=== PATIENT | female | born 1980 | race Caucasian/White ===

== ENCOUNTER 2023-06-29 19:31 | Outpatient (REF) | payer BC, SELFPAY | END 2023-06-29 19:32 | disposition home or self-care (01) | LOC: LAB 19:31 | PROVIDERS: Visit Provider Physician Assistant | DX: Z01.419 Encounter for gynecological examination (general) (routine) without abnormal findings (principal) | CPT/HCPCS: 87624; G0145 ==

== ENCOUNTER 2023-07-14 07:49 | Outpatient (OUT) | payer BC, SELFPAY ==
--- OUTSIDE RECORDS SUMMARY | 2023-07-14 07:51 | XMS_ITS ---
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 Role Phone BENNETT, DR SHAW Attending Unavailable REQUEST, DR ROA LISTED Primary Care Unavaila ble BENNETT, DR SHAW Consulting Unavailable BENNETT, DR SHAW Admitting Unavailable BENNETT, DR SHAW Attending Unavailable BENNETT, DR SHAW Consulting Unavailable PEREZ, DR MARCELLA Seo Primary Care Unavailable BENNETT, DR SHAW Admitting Unavailable AGUBOSIM, TRIPP Consulting Unavailable DORKOSKIE, LISA Consulting Unavailable PEREZ, DR MARCELLA Seo Admitting Unavailable REQUEST, DR ROA LISTED Primary Care Unavaila ble PEREZ, DR MARCELLA Seo Attending Unavailable PEREZ, DR MARCELLA Seo Consulting Unavailable BENNETT, DR SHAW Attending Unavailable PEREZ, DR MARCELLA Seo Primary Care Unavailable BENNETT, DR SHAW Admitting Unavailable Marcella Perez Unavailable MARCELLA PEREZ Primary Care Unavailable RAUL MADRID Attending Unavailab ANDREA Chong Attending Unavailable Allergies Allergy Classification Reported Allergen(s) Allergy Type Date of Onset Reaction(s) Facility (1 source) Penicillins Drug allergy (disorder) 12-07-19 13 [facility] (1 source) Sulfonamides (Antibiotic) Drug allergy (disorder) [facility] (8 sources) penicillAMINE Drug Allergy hives [employer] Other (2 sources) Azithromycin Drug Allergy 04-05-19 14 Unknown [employer] Other (2 sources) Penicillin Drug Allergy 04-05-19 14 Unknown [employer] Other (2 sources) Substance with penicillin structure and antibacterial mechanism of action (substance) Drug allergy Unknown [employer] Other (2 sources) Substance with sulfonamide structure and antibacterial mechanism of action (substance) Drug allergy Unknown [employer] Other (2 sources) patient allergy list reviewed by nurse or physicia Propensity to adverse reactions 10-21-19 Comment:Done [employer] Other (2 sources) Allergies Reconciled Propensity to adverse reactions 02-06-19 Unknown [employer] Other (1 source) Amoxicillin; Translations: [AMOXICILLIN] Drug Allergy 01-11-20 [facility] Encounters Encounter Date Encounter Type Care Provider Facility Start: 06-29-2023 End: 06-29-2023 ambulatory ANDREA PRADO Not Available Start: 03-03-2023 End: 03-03-2023 Emergency department patient visit MARCELLA PEREZ [facility] Start: 03-01-2023 End: 03-01-2023 ambulatory Marcella Perez Other [employer] Other Start: 03-01-2023 Telephone encounter Marcella Perez [facility] Start: 10-04-2022 End: 10-04-2022 ambulatory Marcella Perez Other [employer] Other Start: 10-04-2022 Telephone encounter Marcella Perez [facility] Start: 08-22-2022 End: 08-22-2022 ambulatory Marcella Perez Other [employer] Other Start: 08-22-2022 Telephone encounter Marcella Perez [facility] Start: 07-13-2022 End: 07-13-2022 ambulatory Marcella Perez Other [employer] Other Start: 07-13-2022 Telephone encounter Marcella Perez [facility] Start: 04-14-2022 (Televisit) Televisit Marcella [facility] Start: 04-14-2022 End: 04-14-2022 ambulatory Marcella Perez Other [employer] Other Start: 02-24-2022 End: 02-24-2022 ambulatory Marcella Perez Other [employer] Other Start: 02-24-2022 Telephone encounter Marcella Perez [facility] Start: 02-18-2022 End: 02-18-2022 ambulatory Marcella Perez Other [employer] Other Start: 02-18-2022 Office outpatient vi sit 10 minutes Marcella Perez [facility] Start: 01-14-2022 End: 01-15-[address] MARCELLA PEREZ Facility:[facility] Start: 06-07-2021 Adult health examination Erica Perez Other [employer] Other Start: 06-07-2021 Gynecological examin ation normal Marcella Perez Other [employer] Other Start: 06-07-2021 Pre-procedure evalua tion check Marcella Perez Other [employer] Other Start: 04-23-2021 End: 04-23-[address] COLIN STOLL Facility:[facility] Start: 04-20-[address] COLIN STOLL Facility :[facility] Start: 04-13-2021 Encounter for other preprocedural examination DR COLIN STOLL [facility] Start: 04-09-2021 End: 04-10-[address] COLIN STOLL Facility:[facility] Start: 04-09-2021 End: 04-10-2021 Encounter for other preprocedural examination DR COLIN STOLL Facility:[facility] Immunizations Immunization Date Immunization Notes Care Provider Fa [facility] 11-28-2019 diphtheria, tetanus toxoids and acellular pertussis vaccine, unspecified formulation Marcella Perez Other [employer] Other 11-28-2019 influenza virus vaccine, split virus (incl. purified surface antigen) Marcella Perez Other [employer] Other Medications Current Medications Medication Drug Class(es) Dates Sig (Normalized) Sig (Original) [id number] 200 actuat albuterol 0.09 mg/actuat metered dose inhaler (8 sources) beta2-Adrenergic Agonist take 2 puff(s) by mouth every four hours as needed Ventolin HFA 108 (90 Base) MCG/ACT INHALE 2 PUFFS BY MOUTH EVERY 4 HOURS NEEDED for 17 days Active ALPRAZolam 0.25 mg oral tablet (3 sources) Benzodiazepine Start: 08-22-2022 take 1 tablet by mouth three times daily as needed ALPRAZolam 0.25 MG 1 tablet Orally three times daily as needed for 7 days Aug, Active azithromycin 250 mg oral tablet (6 sources) Macrolide Antimicrobial Start: 04-14-2022 Azithromycin 250 MG as directed Orally 2 tabs po today, then 1 tab daily x 4 more days for 5 Apr, Active citalopram 40 mg oral tablet (8 sources) Serotonin Reuptake Inhibitor take 0.5 tablet by mouth every twenty-four hours Citalopram Hydrobromide 40 MG 0.5 tablet Orally Once a day for 90 days Active phentermine hydrochloride 37.5 mg oral capsule (8 sources) Sympathomimetic Amine Anorectic Start: 02-18-2022 take 1 capsule by mouth every twenty-four hours Adipex-P 37.5 MG 1 capsule Orally Once a day for 30 days Feb, Active Completed/Discontinued Medications Medication Drug Class(es) Dates Sig (Normalized) Sig (Original) dextromethorphan hydrobromide 15 mg / guaiFENesin 400 mg / pseudoephedrine hydrochloride 60 mg oral tablet (8 sources) alpha-Adrenergic Agonist, Uncompetitive S-bnwvme-[place]-aspart[place] e Receptor Antagonist, Sigma-1 Agonist Start: 01-23-2019 Capmist DM 60-15-400 MG 1/2 to 1 tablet Orally every 6-8 hours as needed for 8 days Jan, Not-Taking/PRN methylPREDNISolone 4 mg oral tablet (8 sources) Corticosteroid Start: 01-23-2019 Medrol 4 MG as directed Orally for 6 days Jan, Not-Taking/PRN Payers Date Payer Category Payer Unknown [id number] 1980 Unknown [id number] 2.16.84 [id number] 1980 Unknown [id number] 2.16.84 [id number] 1980 Unknown [id number] 2.16.84 [id number] 1980 Unknown [id number] 2.16.84 [id number] 1980 Unknown [id number] 2.16.8 [id number] 1980 Unknown [id number] 2.16.84 [id number] 1957 Unknown [id number] 1957 Unknown [id number] 1957 Unknown [id number] Problems Active Problems Problem Classification Problem Date Documented Date Episodic/Chronic Acute bronchitis (4 sources) Acute bronchitis; Translations: [Acute bronchitis, unspecified] Onset: 10-29-2013 Episodic Anxiety disorders (3 sources) Anxiety disorder, unspecified; Translations: [Anxiety disorder] Onset: 05-25-2021 Chronic Asthma (5 sources) Unspecified asthma, uncomplicated; Translations: [Uncomplicated asthma] Onset: 05-25-2021 Resolved: 07-04-2018 Chronic Cancer of breast (13 sources) Personal history of malignant neoplasm of breast; Translations: [Personal history of primary malignant neoplasm of breast] Onset: 04-05-2013 Episodic Chronic obstructive pulmonary disease and bronchiectasis (4 sources) Acute exacerbation of chronic asthmatic bronchitis; Translations: [Chronic obstructive asthma, with (acute) exacerbation] Onset: 10-20-2017 Chronic Chronic obstructive pulmonary disease and bronchiectasis (2 sources) Bronchitis, not specified as acute or chronic Episodic Contraceptive and procreative management (4 sources) Encounter for sterilization; Translations: [Encounter for removal of intrauterine contraceptive device] Onset: 05-25-2021 Episodic Endometriosis (2 sources) Endometriosis of uterus; Translations: [Endometriosis of uterus] Onset: 04-05-2013 Chronic Genitourinary congenital anomalies (1 source) Other doubling of uterus, other specified; Translations: [OTHER AND UNS DOUBLING OF UTERUS] Onset: 05-25-2021 Chronic Headache; including migraine (1 source) Headache Onset: 03-03-2023 Episodic Influenza (1 source) Influenza due to other identified influenza virus with other respiratory manifestations; Translations: [Influenza due to other identified influenza virus with other respiratory manifestations] Onset: 03-03-2023 Episodic Liveborn (2 sources) Single liveborn born in hospital by section ; Translations: [Single liveborn , delivered by ] Episodic Malaise and fatigue (6 sources) Other fatigue; Translations: [Fatigue] Onset: 01-14-2022 Episodic Menstrual disorders (9 sources) Excessive and frequent menstruation with regular cycle; Translations: [Irregular periods] Onset: 03-09-2021 Chronic Mood disorders (1 source) Major depressive disorder, single episode, unspecified; Translations: [PINO DEPRESS D/O SINGLE EPIS UNS] Onset: 05-25-2021 Chronic Nausea and vomiting (1 source) Nausea Onset: 03-03-2023 Episodic Nonmalignant breast conditions (2 sources) Pain of breast; Translations: [Mastodynia] Episodic Other aftercare (2 sources) History and physical examination, follow-up; Translations: [Encounter for follow-up examination after completed treatment for conditions other than malignant neoplasm] Episodic Other aftercare (2 sources) Long-term current use of inhaled steroid; Translations: [shelter (current) use of inhaled steroids] Episodic Other circulatory disease (2 sources) Elevated blood-pressure reading without diagnosis of hypertension; Translations: [Elevated blood-pressure reading, without diagnosis of hypertension] Episodic Other nutritional; endocrine; and metabolic disorders (8 sources) Body mass index 30+ - obesity; Translations: [Body mass index (BMI) 36.0-36.9, adult] Chronic Other nutritional; endocrine; and metabolic disorders (1 source) Body mass index (BMI) 36.0-36.9, adult Chronic Other nutritional; endocrine; and metabolic disorders (2 sources) Obese class II; Translations: [Body mass index (BMI) 37.0-37.9, adult] Chronic Other and delivery including normal (6 sources) Primigravida; Translations: [Encounter for supervision of normal first , unspecified trimester] Episodic Other upper respiratory disease (2 sources) Allergic rhinitis; Translations: [Allergic rhinitis, unspecified] Onset: 04-05-2013 Chronic Other upper respiratory disease (1 source) Nasal congestion Onset: 03-03-2023 Episodic Residual codes; unclassified (2 sources) History of uterine scar from previous surgery; Translations: [History of uterine scar from previous surgery] Episodic Residual codes; unclassified (2 sources) Gestation period, 11 weeks; Translations: [11 weeks gestation of ] Episodic Residual codes; unclassified (2 sources) Gestation period, 19 weeks; Translations: [19 weeks gestation of ] Episodic Residual codes; unclassified (2 sources) Gestation less than 9 weeks; Translations: [Less than 8 weeks gestation of ] Episodic Residual codes; unclassified (2 sources) Gestation period, 10 weeks; Translations: [10 weeks gestation of ] Episodic Residual codes; unclassified (2 sources) Bilateral acquired absence of ovary; Translations: [Acquired absence of ovaries, bilateral] Episodic Screening and history of mental health and substance abuse codes (3 sources) Personal history of nicotine dependence; Translations: [Nicotine dependence] Onset: 05-25-2021 Episodic Unclassified (1 source) Fever, Body Aches, Nausea, Congestion Onset: 03-03-2023 Past or Other Problems Problem Classification Problem Date Documented Date Episodic/Chronic Other aftercare (1 source) 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; Translations: [OTH MERCHANT SEAMAN CURRENT DRUG THERAPY] Onset: 05-25-2021 Episodic Other complications of (2 sources) Disease of the respiratory system complicating , childbirth and/or the puerperium; Translations: [Diseases of the respiratory system complicating , first trimester] Resolved: 11-06-2018 Episodic Other complications of (2 sources) Multigravida of advanced maternal age; Translations: [Supervision of elderly multigravida, unspecified trimester] Resolved: 11-06-2018 Episodic Other complications of (2 sources) Supervision of high risk done; Translations: [Supervision of other high risk pregnancies, unspecified trimester] Resolved: 11-06-2018 Episodic Other female genital disorders (2 sources) Noninflammatory disorder of the vagina; Translations: [Other specified noninflammatory disorders of vagina] Resolved: 07-04-2018 Episodic Other screening for suspected conditions (not mental disorders or infectious disease) (2 sources) Encounter for screening for Streptococcus B; Translations: [Encounter for screening for Streptococcus B] Resolved: 10-24-2018 Episodic Other upper respiratory infections (4 sources) Acute sinusitis; Translations: [Acute sinusitis, unspecified] Onset: 04-05-2013 Episodic Previous (2 sources) Supervision of high risk with history of previous section; Translations: [Maternal care for unspecified type scar from previous delivery] Resolved: 11-06-2018 Episodic Residual codes; unclassified (2 sources) Gestation period, 23 weeks; Translations: [23 weeks gestation of ] Resolved: 08-29-2018 Episodic Residual codes; unclassified (2 sources) Gestation period, 16 weeks; Translations: [16 weeks gestation of ] Resolved: 07-04-2018 Episodic Residual codes; unclassified (2 sources) Gestation period, 17 weeks; Translations: [17 weeks gestation of ] Resolved: 07-04-2018 Episodic Residual codes; unclassified (2 sources) Gestation period, 35 weeks; Translations: [35 weeks gestation of ] Resolved: 11-06-2018 Episodic Residual codes; unclassified (2 sources) Gestation period, 31 weeks; Translations: [31 weeks gestation of ] Resolved: 10-10-2018 Episodic Residual codes; unclassified (2 sources) Gestation period, 33 weeks; Translations: [33 weeks gestation of ] Resolved: 10-24-2018 Episodic Residual codes; unclassified (2 sources) Gestation period, 27 weeks; Translations: [27 weeks gestation of ] Resolved: 09-26-2018 Episodic Residual codes; unclassified (2 sources) Gestation period, 29 weeks; Translations: [29 weeks gestation of ] Resolved: 09-26-2018 Episodic Procedures Date Procedure Procedure Detail Performing Clinician End: 07-04-2018 screening Marcella Perez Other End: 09-26-2018 Depression screening Marcella Perez Other End: 09-26-2018 Diabetes mellitus screening Marcella Perez Other Insertion of intraut erine contraceptive device Marcella Perez Other visit Marcella Perez Other End: 11-06-2018 Routine care Marcella Perez Other Viral screening Marcella Perez Other Results Test Name Value Interpretation Reference Range Facil ity HCG ( test) Ql (U)o n 03-03-2023 Beta HCG ( test) Ql (U) Negative Normal NEG [facility] Comment on above: Performed By: #### 2 106-3 #### [facility] ([id number]) [address] [place] [address] SARS/FLU A+B/RSV by NAAT/Mol ecularon 03-03-2023 SARS/FLU A+B/RSV by NAAT/Molecular FLU A PCR Positive (qualifier value) FLU B PCR Negative (qualifier value) RSV by PCR Negative (qualifier value) SARS CoV 2 Not detected (qualifier value) NOTE The Xpert Xpress SARS-CoV-2/Flu/RSV Plus test is a rapid, multiplexed real-time RT-PCR test intended for the simultaneous qualitative detection and differentiation of SARS-CoV-2, influenza A, influenza B and respiratory syncytial virus (RSV) viral RNA from individuals suspected of respiratory viral infection consistent with COVID-19 by their healthcare provider. This test has not been validated in asymptomatic patients. The Xpert Xpress SARS-CoV-2 test is intended for use by qualified and trained operators who are performing tests using either [employer] DX or Inbiomotion systems and is limited to laboratories that meet the CLIA requirements to perform high and moderate complexity tests. The Xpert Xpress SARS-CoV-2/Flu/RSV Plus is only for use under the Food and Drug Administration's Emergency Use Authorization. Results are for the simultaneous detection and differentiation of SARS-CoV-2, influenza A, influenza B and RSV nucleic acids in clinical specimens. SARS-CoV-2, influenza A, influenza B and RSV RNA identified by this test are generally detectable in upper respiratory samples during the acute phase of infection. Positive results are indicative of the presence of the identified virus, but do not rule out bacterial infection or co-infection with other pathogens not detected by this test. Clinical correlation with patient history and other diagnostic information is necessary to determine patient infection status. The agent detected may not be the definite cause of disease. Negative results do not preclude SARS-CoV-2, influenza A, influenza B and RSV infection and should not be used as the sole basis for treatment or other patient management decisions. Negative results must be combined with clinical observations, patient history and epidemiological information. An Invalid result may occur with specimen-associated inhibition unable to be resolved with specimen repeat. Fact Sheet for Healthcare Providers: https://www.fda.gov/m edia/915052/download Fact Sheet for Patients: https://www.fda.gov/m edia/907125/download Normal [facility] Comment on above: Performed By: #### C OVFLR #### [facility] ([id number]) [address] [place] [address]206 URN MACROSCOPIC NURon 2023 BILIRUBIN CHERRY Small Abnormal NEG [facility] Comment on above: Performed By: #### N UM #### [facility] ([id number]) [address] [place] [address] 34584 BLOOD/HGB CHERRY Negative Normal NEG [facility] Comment on above: Performed By: #### N UM #### [facility] ([id number]) [address] [place] [address] 60827 GLUCOSE CHERRY Negative Normal NEG [facility] Comment on above: Performed By: #### N UM #### [facility] ([id number]) [address] [place] [address] 67604 KETONES CHERRY 40 mg/dL Abnormal NEG [facility] Comment on above: Performed By: #### N UM #### [facility] ([id number]) [address] [place] [address] 66614 LEUKOCYTE ESTERASE CHERRY Negative Normal NEG [facility] Comment on above: Performed By: #### N UM #### [facility] ([id number]) [address] [place] [address] 67628 NITRITE CHERRY Negative Normal NEG [facility] Comment on above: Performed By: #### N UM #### [facility] ([id number]) [address] [place] [address] 16817 PH CHERRY 7.0 Normal 5.0-8.5 [facility] Comment on above: Performed By: #### N UM #### [facility] ([id number]) [address] [place] [address] 28424 PROTEIN CHERRY Negative Normal NEG [facility] Comment on above: Performed By: #### N UM #### [facility] ([id number]) [address] [place] [address] 57356 SPECIFIC GRAVITY CHERRY 1.025 Normal 1.003-1.035 [facility] Comment on above: Performed By: #### N UM #### [facility] ([id number]) [address] [place] [address] 18194 UROBILINOGEN CHERRY 0.2 eu/dL Normal <1.1 [facility] Comment on above: Performed By: #### N UM #### [facility] ([id number]) [address] [place] [address] 58286 CBC AUTO DIFFon 01-14-2022 BASO # 0.0 103/ul Normal 0.0-0.1 [facility] Comment on above: Performed By: #### C BC #### [facility] [address] [place] [address] Dr. Brian Hayes Basophils/100 WBC (Bld) 0.6 % Normal 0.2-2.0 [facility] Comment on above: Performed By: #### C BC #### [facility] [address] [place] [address] Dr. Brian Hayes EO # 0.2 103/ul Normal 0.0-0.7 [facility] Comment on above: Performed By: #### C BC #### [facility] [address] [place] [address] Dr. Brian Hayes Eosinophils/100 WBC (Bld) 2.7 % Normal 0.9-7.0 [facility] Comment on above: Performed By: #### C BC #### [facility] [address] [place] [address] Dr. Brian Hayes Erythrocyte distribution width (RBC) [Ratio] 13.1 % Normal 11.0-15.0 [facility] Comment on above: Performed By: #### C BC #### [facility] [address] [place] [address] Dr. Brian Hayes Hematocrit (Bld) [Volume fraction] 37.1 % Normal 36.0-48.0 [facility] Comment on above: Performed By: #### C BC #### [facility] [address] [place] [address] Dr. Brian Hayes Hemoglobin (Bld) [Mass/Vol] 13.1 g/dL Normal 12.0-16.0 [facility] Comment on above: Performed By: #### C BC #### [facility] [address] [place] [address] Dr. Brian Hayes IG # 0.02 10e3/ul Normal 0.00-0.03 [facility] Comment on above: Performed By: #### C BC #### [facility] [address] [place] [address] Dr. Brian Hayes IG % 0.3 % Normal 0.0-0.5 [facility] Comment on above: Performed By: #### C BC #### [facility] [address] [place] [address] Dr. Brian Hayes LYMPH # 2.6 103/ul Normal 1.2-3.8 [facility] Comment on above: Performed By: #### C BC #### [facility] [address] [place] [address] Dr. Brian Hayes Lymphocytes/100 WBC (Bld) 36.2 % Normal 20.5-60.0 [facility] Comment on above: Performed By: #### C BC #### [facility] [address] [place] [address] Dr. Brian Hayes MANUAL DIFF REQ NO Normal [facility] Comment on above: Performed By: #### C BC #### [facility] [address] [place] [address] Dr. Brian Hayes MCH (RBC) [Entitic mass] 33.7 pg Normal 26.7-34.0 [facility] Comment on above: Performed By: #### C BC #### [facility] [address] [place] [address] Dr. Brian Hayes MCHC (RBC) [Mass/Vol] 35.3 g/dL Critically high 29.9-35.2 [facility] Comment on above: Performed By: #### C BC #### [facility] [address] [place] [address] Dr. Brian Hayes MCV (RBC) [Entitic vol] 95.4 fL Normal 81.0-99.0 [facility] Comment on above: Performed By: #### C BC #### [facility] [address] [place] [address] Dr. Brian Hayes MONO # 0.4 103/ul Normal 0.3-0.8 [facility] Comment on above: Performed By: #### C BC #### [facility] [address] [place] [address] Dr. Brian Hayes Monocytes/100 WBC (Bld) 6.1 % Normal 1.7-12.0 [facility] Comment on above: Performed By: #### C BC #### [facility] [address] [place] [address] Dr. Brian Hayes NEUT # 3.9 103/ul Normal 1.4-6.5 [facility] Comment on above: Performed By: #### C BC #### [facility] [address] [place] [address] Dr. Brian Hayes Neutrophils/100 WBC (Bld) 54.1 % Normal 43.0-75.0 [facility] Comment on above: Performed By: #### C BC #### [facility] [address] [place] [address] Dr. Brian Hayes Platelet mean volume (Bld) [Entitic vol] 10.9 fL Normal 9.5-13.5 [facility] Comment on above: Performed By: #### C BC #### [facility] [address] [place] [address] Dr. Brian Hayes PLT 228 103/ul Normal 150-450 [facility] Comment on above: Performed By: #### C BC #### [facility] [address] [address] [address] Brian Hayes RBC 3.89 106/ul Critically low 4.20-5.40 [facility] Comment on above: Performed By: #### C BC #### [facility] [address] [address] [address] Brian Hayes WBC 7.1 103/ul Normal 4.0-11.0 [facility] Comment on above: Performed By: #### C BC #### [facility] [address] [address] [address] Brian Hayes PROF CHEM 8 (BAS METB)on Anion gap [Moles/Vol] 12.2 mmol/L Normal [facility] Comment on above: Performed By: #### B MP, TSH #### [facility] [address] [place] [address] Dr. Brian Hayes Calcium [Mass/Vol] 8.6 mg/dL Normal 8.5-10.1 [facility] Comment on above: Performed By: #### B MP, TSH #### [facility] [address] [place] [address] Dr. Brian Hayes Chloride [Moles/Vol] 104 mmol/L Normal 98-107 [facility] Comment on above: Performed By: #### B MP, TSH #### [facility] [address] [place] [address] Dr. Brian Hayes CO2 [Moles/Vol] 28.7 mmol/L Normal 21.0-32.0 [facility] Comment on above: Performed By: #### B MP, TSH #### [facility] [address] [place] [address] Dr. Brian Hayes Creatinine [Mass/Vol] 0.67 mg/dL Normal 0.55-1.02 [facility] Comment on above: Performed By: #### B MP, TSH #### [facility] [address] [place] [address] Dr. Brian Hayes EGFR-AF GABONESE >60 Normal >=60 [facility] Comment on above: Performed By: #### B MP, TSH #### [facility] [address] [address] [address] Brian Hayes EGFR-NON AF GABONESE >60 Normal >=60 [facility] Comment on above: Performed By: #### B MP, TSH #### [facility] [address] [address] [address] Brian Hayes Glucose [Mass/Vol] 87 mg/dL Normal 74-106 [facility] Comment on above: Performed By: #### B MP, TSH #### [facility] [address] [address] [address] Brian Hayes Potassium [Moles/Vol] 3.9 mmol/L Normal 3.5-5.1 [facility] Comment on above: Performed By: #### B MP, TSH #### [facility] [address] [address] [address] Brian Hayes Sodium [Moles/Vol] 141 mmol/L Normal 136-145 [facility] Comment on above: Performed By: #### B MP, TSH #### [facility] [address] [address] [address] Brian Hayes Urea nitrogen [Mass/Vol] 10.0 mg/dL Normal 7.0-18.0 [facility] Comment on above: Performed By: #### B MP, TSH #### [facility] [address] [address] [address] Brian Hayes Urea nitrogen/Creatinin e [Mass ratio] 14.9 mg/mg Normal [facility] Comment on above: Performed By: #### B MP, TSH #### [facility] [address] [address] [address] Brian Hayes TSHon 01-14-2022 TSH 2.857 uIU/mL Normal 0.358-3.740 [facility] Comment on above: Performed By: #### B MP, TSH #### [facility] [address] [address] [address] Brian Hayes CBC AUTO DIFFon 04-23-2021 BASO # 0.0 103/ul Normal 0.0-0.1 [facility] Comment on above: Performed By: #### C BC #### [facility] [address] [place] [address] Dr. Brian Hayes Basophils/100 WBC (Bld) 0.6 % Normal 0.2-2.0 [facility] Comment on above: Performed By: #### C BC #### [facility] [address] [place] [address] Dr. Brian Hayes EO # 0.2 103/ul Normal 0.0-0.7 [facility] Comment on above: Performed By: #### C BC #### [facility] [address] [place] [address] Dr. Brian Hayes Eosinophils/100 WBC (Bld) 4.5 % Normal 0.9-7.0 [facility] Comment on above: Performed By: #### C BC #### [facility] [address] [place] [address] Dr. Brian Hayes Erythrocyte distribution width (RBC) [Ratio] 12.6 % Normal 11.0-15.0 [facility] Comment on above: Performed By: #### C BC #### [facility] [address] [place] [address] Dr. Brian Hayes Hematocrit (Bld) [Volume fraction] 38.7 % Normal 36.0-48.0 [facility] Comment on above: Performed By: #### C BC #### [facility] [address] [place] [address] Dr. Brian Hayes Hemoglobin (Bld) [Mass/Vol] 13.4 g/dL Normal 12.0-16.0 [facility] Comment on above: Performed By: #### C BC #### [facility] [address] [place] [address] Dr. Brian Hayes IG # 0.01 10e3/ul Normal 0.00-0.03 [facility] Comment on above: Performed By: #### C BC #### [facility] [address] [place] [address] Dr. Brian Hayes IG % 0.2 % Normal 0.0-0.5 [facility] Comment on above: Performed By: #### C BC #### [facility] [address] [place] [address] Dr. Brian Hayes LYMPH # 1.6 103/ul Normal 1.2-3.8 [facility] Comment on above: Performed By: #### C BC #### [facility] [address] [place] [address] Dr. Brian Hayes Lymphocytes/100 WBC (Bld) 34.4 % Normal 20.5-60.0 [facility] Comment on above: Performed By: #### C BC #### [facility] [address] [place] [address] Dr. Brian Hayes MANUAL DIFF REQ NO Normal [facility] Comment on above: Performed By: #### C BC #### [facility] [address] [place] [address] Dr. Brian Hayes MCH (RBC) [Entitic mass] 34.0 pg Normal 26.7-34.0 [facility] Comment on above: Performed By: #### C BC #### [facility] [address] [place] [address] Dr. Brian Hayes MCHC (RBC) [Mass/Vol] 34.6 g/dL Normal 29.9-35.2 [facility] Comment on above: Performed By: #### C BC #### [facility] [address] [place] [address] Dr. Brian Hayes MCV (RBC) [Entitic vol] 98.2 fL Normal 81.0-99.0 [facility] Comment on above: Performed By: #### C BC #### [facility] [address] [place] [address] Dr. Brian Hayes MONO # 0.4 103/ul Normal 0.3-0.8 [facility] Comment on above: Performed By: #### C BC #### [facility] [address] [place] [address] Dr. Brian Hayes Monocytes/100 WBC (Bld) 7.9 % Normal 1.7-12.0 [facility] Comment on above: Performed By: #### C BC #### [facility] [address] [address] [address] Brian Hayes NEUT # 2.5 103/ul Normal 1.4-6.5 [facility] Comment on above: Performed By: #### C BC #### [facility] [address] [address] [address] Brian Hayes Neutrophils/100 WBC (Bld) 52.4 % Normal 43.0-75.0 [facility] Comment on above: Performed By: #### C BC #### [facility] [address] [place] [address] Dr. Brian Hayes Platelet mean volume (Bld) [Entitic vol] 10.8 fL Normal 9.5-13.5 [facility] Comment on above: Performed By: #### C BC #### [facility] [address] [place] [address] Dr. Brian Hayes PLT 215 103/ul Normal 150-450 [facility] Comment on above: Performed By: #### C BC #### [facility] [address] [address] [address] Brian Hayes RBC 3.94 106/ul Critically low 4.20-5.40 [facility] Comment on above: Performed By: #### C BC #### [facility] [address] [place] [address] Dr. Brian Hayes WBC 4.7 103/ul Normal 4.0-11.0 [facility] Comment on above: Performed By: #### C BC #### [facility] [address] [place] [address] Dr. Brian Hayes PREG QUANT HCGon 04-23-2021 HCG QUANT <1 Normal [facility] Comment on above: Performed By: #### P REGQNT #### [facility] [address] [place] [address] Dr. Brian Hayes HCG RANGE SEE BELOW Normal [facility] Comment on above: Result Comment: 5-50 0-1 WEEK 40-300 1-2 WEEKS 100-1,000 2-3 WEEKS 500-6,000 3-4 WEEKS 5,000-200,000 1-2 MONTHS 10,000-100,000 2-3 MONTHS 3,000-50,000 2ND TRIMESTER 1,000-50,000 3RD TRIMESTER Performed By: #### P REGQNT #### [facility] [address] [address] [address] Brian Hayes MM diagnostic mammo BI w/CAD on 08-02-2019 MM diagnostic mammo BI w/CAD [facility] [place] [address] [place] [address] Mammography Report Signed Patient: Marisela Overton MR#: [id number] : 1980 Acct:[id number] Age/Sex: 38 / F ADM Date: 08/02/19 Loc: CT Room: Type: [facility] Attending Dr: Heladio Alves MD Ordering Provider: Heladio Alves MD Date of Service: 08/02/19 MM/MM diagnostic mammo BI w/CAD: C50.012 Copies to: MD Heladio Neumann MD DIAGNOSTIC BILATERAL MAMMOGRAM - FULL FIELD DIGITAL WITH TOMOSYNTHESIS CLINICAL DATA: History of left-sided breast cancer with lumpectomy Craniocaudal and mediolateral oblique views of the bilateral breasts were obtained using low-dose digital technique. Comparison is made to prior studies from 06/06/2017, 05/11/2016, 05/11/2015, and 05/09/2014. This examination was reviewed with the aid of CAD. The breast parenchyma is heterogeneously dense. Benign-appearing lymph nodes are noted along the right chest wall similar to prior studies. There are surgical clips in the upper outer quadrant of the left breast with architectural distortion and scarring consistent with prior lumpectomy. There are a few scattered punctate benign-appearing calcifications which are unchanged. There are no dominant masses, typically malignant calcifications or architectural distortion. There has been no significant interval change. MM/MM diagnostic mammo BI w/CAD IMPRESSION: NO MAMMOGRAPHIC EVIDENCE OF MALIGNANCY. ROUTINE FOLLOW-UP IS RECOMMENDED IN ONE YEAR. RESULT CODE: 2 Benign Findings(s) DENSITY CODE: 3 (approximately 51-75% glandular) FOLLOW UP: 1YR The false-negative rate of mammography is approximately 10-percent. Management of a palpable abnormality must be based on clinical grounds. Impression dictated by: Félix Montano M.D.08/02/2019 8:20 AM Dictation Location: [facility] Transcribed By: [facility] 08/02/19819 Dictated By: Félix Montano II, MD 08/02/19812 Signed By: 08/02/19819 [facility] Social History Date Type Detail Facility Unknown if ever smoked [employer] Other Sex Assigned At Sex Assigned At Bir th [employer] Other Vital Signs Date Time Vital Sign Value Performing Clinician Facility 02-18-2022 10:30-0500 Body height 170.18 cm Marcella Perez Other [employer] Other 02-18-2022 10:30-0500 Body mass index (BMI) [Ratio] 36.96 kg/m2 Marcella Perez Other [employer] Other 02-18-2022 10:30-0500 Body weight 107.05 kg Marcella Perez Other [employer] Other 02-18-2022 10:30-0500 Diastolic blood pressure 78 mm[Hg] Marcella Perez Other [employer] Other 02-18-2022 10:30-0500 Systolic blood pressure 124 mm[Hg] Marcella Perez Other [employer] Other Evaluation note 04-14-2022 Note Date & Type Note Facility 04-14-2022 Evaluation note Encounter Date Diagnosis Assessment Notes Apr, Bronchitis (ICD-10 - J40) Bronchitis: Care Instructions material was printed. Encourage fluids and rest. Symptoms should improve within the next 4-7 days. Use Bromfed DM as needed for cough and congestion. Do not use other OTC cold/cough medications with Bromfed DM. Use inhaler at least twice for the next 2 days, and then as needed for wheezing. Cough may linger after viral or bacterial infections; sometimes for weeks. Patient should follow up with PCP if symptoms persist or worsen. Patient advised to go to ER immediately if experiencing shortness of breath or difficulty breathing. Patient verbalized understanding and agreement with treatment plan. [employer] Other Evaluation note 02-18-2022 Note Date & Type Note Facility 02-18-2022 Evaluation note Encounter Date Diagnosis Assessment Notes Feb, BMI 36.0-36. 9,adult (ICD-10 - Z68.36) Denies adverse side effects. Signed adipex rules. Continue month #2 of treatment. Is becoming more mindful of stress eating. Reviewed PDMP report. obese [employer] Other Clinical Note 04-23-2021 Note Date & Type Note Facility 04-23-2021 Note [facility] [place], [place] NAME: MARISELA OVERTON DATE OF : MEDICAL REC#: [id number] PHARMACEUTICAL ANALYST: [address] [facility] DATE: 04/23/2021 07:23:00 [employer] DATE: 04/25/2021 01:00 DICTATING PHYSICIAN: COLIN STOLL DICTATION DATE: 04/23/2021 11:00 OPERATIVE NOTE PROCEDURE: Laparoscopic bilateral salpingectomy, removal of IUD, as well as attempted Ike ablation with hysteroscopy; unable to perform due to uterine cavity. PREOPERATIVE DIAGNOSIS: Menorrhagia, desire permanent sterilization, desires removal of IUD. POSTOPERATIVE DIAGNOSIS: Menorrhagia, desire permanent sterilization, desires removal of IUD. ANESTHESIA: General. SURGEON: Colin Stoll D.O. CAR RUNNER: STEVE Baca. URINE OUTPUT: Yellow and clear. FINDINGS: A significant uterine septum on hysteroscopy. Both ostia were seen. No gross of evidence of polyps, fibroid or malignancy. Otherwise normal appearing uterus, normal appearing ovaries, normal appearing tubes. SPECIMEN: Bilateral tubes as well as IUD. PROCEDURE: The patient was taken back to the Operating Room where she was given general anesthesia without difficulty. She was then prepped and draped in the normal sterile fashion after being placed in a dorsal lithotomy position. Ta weighted speculum was placed in the vagina and the anterior lip of the cervix was identified, the iud strings were seen and grssped using ring forcepts, the iud was then removed, the pt was then gently sounded to 9cm, the pt cervix was dilated using hegar dilators, the hysteroscope was passed through the cervix and into the uterus, dt abnormal shaped uterus the ike ablation could not be performed. A wet sponge stick was placed into the patient's vagina. Attention was then turned to the patient's abdomen, where a scalpel was used to make a small infraumbilical incision. The S retractors were then used to dissect the underlying layers until the fascia could be seen. The fascia was then grasped with Rylie clamps and tented up. A knife was then used to make a small incision to the fascia. The muscle was identified, at that time two sutures of #0 Vicryl on a GI needle was then used and placed through the fascia. The peritoneum was then identified and entered bluntly. The 10-4 Adamaris was then placed into the patient's abdomen. This was confirmed with direct visualization of the bowel, using the laparoscope. The patient's abdomen was then insufflated using approximately 4 liters of CO2 gas. Survey of the patient's abdomen demonstrated ovaries were normal in appearance as well as both tubes. A second and third lateral ports, which was 7-8 and 5mm in size, was then placed rt and lt laterally after incision was made in the skin under direct visualization. The patient's tube on the patient's right side was identified. Instead of using Filshie clips the LigaSure apparatus was used to come across the mesosalpinx and this was done on the contralateral side. The tubes were removed in their entirety. The left lateral port was then moved under direct visualization with excellent hemostasis. All instruments were removed from the patient's abdomen. The fascia was closed using the #0 Vicryl on GI needle. The skin was closed using 4-0 Vicryl subcuticularly. All instruments were removed from the patient's vagina as well. The patient was taken out of the dorsal lithotomy position and placed in the supine position and taken to recovery in stable condition. Sponge, lap and needle counts were correct x2. Electronically Authenticated and Edited by: Colin tSoll DO on 05/03/2021 10:13 PM EDT IFC Signed and Approved by: DR COLIN STOLL . 05/03/2021 22:13:00 [facility] Evaluation note Note Date & Type Note Facility Evaluation note No Information [facility] [employer] Other History general Narrative - Reported Note Date & Type Note Facility History general Narrative - Reported Type Medical History breast cancer 2014 Medical History History of breast cancer Surgical History C section Surgical History breast cancer [facility] [employer] Other Summary Purpose Family History No Family History Records FoundNo Family History Records FoundNo Family History Records FoundNo Family History Records Found Advance Directives No Advanced Directives Records FoundNo Advanced Directives Records FoundNo Advanced Directives Records FoundNo Advanced Directives Records Found Additional Source Comments INFORMATION SOURCE (unrecogn ized section and content) DATE CREATED AUTHOR 08/28/2019 [facility] DATE CREATED AUTHOR AUTHOR'S ORGANIZ ATION 02/18/[address] [facility] DATE CREATED AUTHOR AUTHOR'S ORGANIZ ATION 03/05/2023 [facility] DATE CREATED AUTHOR AUTHOR'S ORGANIZ ATION 07/01/2023 [facility] EPIC REASON FOR VISIT (unrecogniz ed section and content) [employer] Follow upSINUS CONGESTION, SORE THROATSINUS CONGESTION, SORE THROATrefillmedicationrefillRefill FOR RECORDS PERTAINING TO PATIENTS WHO ARE OR HAVE BEEN ENROLLED IN A CHEMICAL DEPENDENCY/SUBSTANCEABUSE PROGRAM, SOME INFORMATION MAY BE OMITTED. This clinical summary was aggregated from multiple sources. Caution should be exercised in using it in the provision of clinical care. This summary normalizes information from multiple sources, and as a consequence, information in this document may materially change the coding, format and clinical context of patient data. In addition, data may be omitted in some cases. CLINICAL DECISIONS SHOULD BE BASED ON THE PRIMARY CLINICAL RECORDS. [employer] provides no warranty or guarantee of the accuracy or completeness of information in this document.
--- NOTE | 2023-07-14 07:53 | US_ITS ---
Patient Name: KIA REMY MR#: [id number] : 1980 Exam Date: 07/14/2023 Ordering Doctor: DR COLIN GUAJARDO . RADIOLOGY REPORT PROCEDURE: MM TOMOSYNTHESIS DIAGNOSTIC BI, 07/14/2023, 07:53 US BREAST LT LIMITED, 07/14/2023, 08:19 COMPARISON: MG MAMM KJ DIAG W CAD, 08/02/2019. MG MAMM KJ DIAG W CAD, 06/06/2017. INDICATIONS: Breast lump on left side at 3 o'clock position N63.25 Calculator Name NCI Breast Cancer Risk Assessment Tool 5 Year Breast Cancer Risk n/a% Lifetime Breast Cancer Risk n/a% Personal Breast Cancer Yes, Left Breast Age 32 Personal Ovarian Cancer No Treatments Lumpectomy, Chemo, Radiation Family Cancers Father with colon cancer at age 67. LOCATION: [facility] BREAST COMPOSITION: The breasts are heterogeneously dense,which may obscure small masses. FINDINGS: DIAGNOSTIC CATEGORY 3--PROBABLY BENIGN FINDING. THE FOLLOWING FINDING(S) HAS A HIGH PROBABILITY OF A BENIGN ETIOLOGY: RIGHT BREAST: No significant suspicious finding. No significant change has occurred. LEFT BREAST: Skin surface marker localizes patient's palpable lump to the posterior upper-outer quadrant adjacent area of scarring. Two new small subtle opacities within this region, approximately 4 millimeters in size. Ultrasound evaluation demonstrates 2 adjacent hyperechoic areas at the 2 o'clock position 0.8 cm from the nipple 4 x 3 x 2 millimeters and 5 x 3 x 2 millimeters in size. While nonspecific, the hyperechogenicity favors a fatty lesion such as a lipoma. Given patient's history of breast cancer follow-up diagnostic left mammogram and left breast ultrasound in 3 months is recommended to document stability. RECOMMENDATIONS: SHORT TERM FOLLOW-UP DIAGNOSTIC MAMMOGRAM LEFT BREAST IN 3 MONTHS. SHORT TERM FOLLOW-UP ULTRASOUND LEFT BREAST IN 3 MONTHS. PLEASE NOTE: A NORMAL MAMMOGRAM DOES NOT EXCLUDE THE POSSIBILITY OF BREAST CANCER. A CLINICALLY SUSPICIOUS PALPABLE LUMP SHOULD BE BIOPSIED. Dictated by: Brad Flynn M.D. on 07/14/2023 at 08:36 Approved by: Brad Flynn M.D. on 07/14/2023 at 09:46
== END 2023-07-14 07:50 | disposition home or self-care (01) ==
LOC: MAMMO 07:49
PROVIDERS: Visit Provider Obstetrics & Gynecology
DX: N63.25 Unspecified lump in the left breast, overlapping quadrants (principal); Z85.3 Personal history of malignant neoplasm of breast; Z80.0 Family history of malignant neoplasm of digestive organs
CPT/HCPCS: 76642; 77066; G0279

== ENCOUNTER 2024-01-10 07:53 | Outpatient (OUT) | payer BC, SELFPAY ==
--- OUTSIDE RECORDS SUMMARY | 2024-01-10 07:58 | XMS_ITS | CCD ---
Author Organization [facility] Care Team Providers Care Marquetry Worker Name Role Phone BENNETT, DR SHAW Attending Unavailable REQUEST, DR ROA LISTED Primary Care Unavaila ble BENNETT, DR SHAW Consulting Unavailable BENNETT, DR SHAW Admitting Unavailable BENNETT, DR SHAW Attending Unavailable BENNETT, DR SHAW Consulting Unavailable FOLEY, DR MARCELLA Seo Primary Care Unavailable BENNETT, DR SHAW Admitting Unavailable AGUBOSIM, TRIPP Consulting Unavailable DORKOSKIE, LISA Consulting Unavailable FOLEY, DR MARCELLA Seo Admitting Unavailable REQUEST, DR ROA LISTED Primary Care Unavaila ble FOLEY, DR MARCELLA Seo Attending Unavailable FOLEY, DR MARCELLA Seo Consulting Unavailable BENNETT, DR SHAW Attending Unavailable FOLEY, DR MARCELLA Seo Primary Care Unavailable BENNETT, DR SHAW Admitting Unavailable Marcella Foley Unavailable MARCELLA FOLEY Primary Care Unavailable RAUL MADRID Attending Unavailab ANDREA Chong Attending Unavailable Allergies Allergy Classification Reported Allergen(s) Allergy Type Date of Onset Reaction(s) Facility (1 source) Penicillins Drug allergy (disorder) 12-07-19 13 [facility] Repository (1 source) Sulfonamides (Antibiotic) Drug allergy (disorder) [facility] (8 sources) penicillAMINE Drug Allergy hives [facility] [employer] Other (2 sources) Azithromycin Drug Allergy 04-05-19 14 Unknown [facility] Other (2 sources) Penicillin Drug Allergy 04-05-19 14 Unknown [facility] Other (2 sources) Substance with penicillin structure and antibacterial mechanism of action (substance) Drug allergy Unknown [facility] Other (2 sources) Substance with sulfonamide structure and antibacterial mechanism of action (substance) Drug allergy Unknown [facility] Other (2 sources) patient allergy list reviewed by nurse or physicia Propensity to adverse reactions 10-21-19 18 Comment:Done [facility] Other (2 sources) Allergies Reconciled Propensity to adverse reactions 02-06-19 19 Unknown [facility] Other (1 source) Amoxicillin; Translations: [AMOXICILLIN] Drug Allergy 01-11-20 21 [facility] Medications Current Medications Medication Drug Class(es) Dates Sig (Normalized) Sig (Original) [id number] actuat albuterol 0.09 mg/actuat metered dose [...] oral tablet (8 sources) alpha-Adrenergic Agonist, Uncompetitive C-iirjeb-P-aspartat e Receptor Antagonist, Sigma-1 Agonist Start: 01-23-2019 Capmist DM 60-15-400 MG 1/2 to 1 tablet Orally every 6-8 hours as needed for 8 days Jan, Not-Taking/PRN methylPREDNISolone 4 mg oral tablet (8 sources) Corticosteroid Start: 01-23-2019 Medrol 4 MG as directed Orally for 6 days Jan, Not-Taking/PRN Problems Active Problems Problem Classification Problem Date [...] hospital by section ; Translations: [Single liveborn infant, delivered by ] Episodic Malaise and fatigue (6 sources) Other fatigue; Translations: [Fatigue] Onset: 12-09-2022 Episodic Menstrual disorders (9 sources) Excessive and [...] Long-term current use of inhaled steroid; Translations: [correction (current) use of inhaled steroids] Episodic Other [...] Date Episodic/Chronic Other aftercare (1 source) Other detention (current) drug therapy; Translations: [OTH KEG RAISER CURRENT DRUG THERAPY] Onset: 05-25-2021 Episodic Other [...] weeks gestation of ] Resolved: 09-26-2018 Episodic Results Test Name Value Interpretation Reference Range Facil ity HCG ( test) Ql (U)o n 03-03-2023 Beta HCG ( test) Ql (U) Negative Normal NEG [facility] Comment on above: Performed By: #### 2 106-3 #### [facility] ([id number]) [address] [place] [address] SARS/FLU A+B/RSV by NAAT/Mol ecularon 03-03-2023 SARS/FLU [...] operators who are performing tests using either SpecifiedBy or jellyfish Infinity systems and is limited to laboratories that [...] repeat. Fact Sheet for Healthcare Providers: https://www.fda.gov/m edia/996815/download Fact Sheet for Patients: https://www.fda.gov/m edia/875572/download Normal [facility] Comment on above: Performed By: #### C OVFLR #### [facility] ([id number]) [address] [place] [address]5786 URN MACROSCOPIC NURon 2023 BILIRUBIN CHERRY Small Abnormal NEG [facility] Comment on above: Performed By: #### N UM #### [facility] ([id number]) [address] [place] [address] 73585 BLOOD/HGB CHERRY Negative Normal NEG [facility] Comment on above: Performed By: #### N UM #### [facility] ([id number]) [address] [place] [address] 34380 GLUCOSE CHERRY Negative Normal NEG [facility] Comment on above: Performed By: #### N UM #### [facility] ([id number]) [address] [place] [address] 85088 KETONES CHERRY 40 mg/dL Abnormal NEG [facility] Comment on above: Performed By: #### N UM #### [facility] ([id number]) [address] [place] [address] 91481 LEUKOCYTE ESTERASE CHERRY Negative Normal NEG [facility] Comment on above: Performed By: #### N UM #### [facility] ([id number]) [address] [place] [address] 77460 NITRITE CHERRY Negative Normal NEG [facility] Comment on above: Performed By: #### N UM #### [facility] ([id number]) [address] [place] [address] 02091 PH CHERRY 7.0 Normal 5.0-8.5 [facility] Comment on above: Performed By: #### N UM #### [facility] ([id number]) [address] [place] [address] 33610 PROTEIN CHERRY Negative Normal NEG [facility] Comment on above: Performed By: #### N UM #### [facility] ([id number]) [address] [place] [address] 39698 SPECIFIC GRAVITY CHERRY 1.025 Normal 1.003-1.035 [facility] Comment on above: Performed By: #### N UM #### [facility] ([id number]) [address] [place] [address] [place] [address] UROBILINOGEN CHERRY 0.2 eu/dL Normal <1.1 [facility] Comment on above: Performed By: #### N UM #### [facility] ([id number]) [address] [place] [address] 89284 CBC AUTO DIFFon 01-14-2022 BASO # 0.0 103/ul Normal 0.0-0.1 [facility] Comment on above: Performed By: #### C BC #### [facility] [address] [place] [address] Dr. Brian Hayes Basophils/100 WBC (Bld) 0.6 % Normal 0.2-2.0 [facility] Comment on above: Performed By: #### C BC #### [facility] [address] [place] [address] Dr. Brian Hayes EO # 0.2 103/ul Normal 0.0-0.7 [facility] Comment on above: Performed By: #### C BC #### [facility] [address] [place] [address] Dr. Brian Hayes Eosinophils/100 WBC (Bld) 2.7 % Normal 0.9-7.0 [facility] Comment on above: Performed By: #### C BC #### [facility] [address] [place] [address] Dr. Brian Hayes Erythrocyte distribution width (RBC) [Ratio] 13.1 % Normal 11.0-15.0 [facility] Comment on above: Performed By: #### C BC #### [facility] [address] [place] [address] Dr. Brian Hayes Hematocrit (Bld) [Volume fraction] 37.1 % Normal 36.0-48.0 [facility] Comment on above: Performed By: #### C BC #### [facility] [address] [place] [address] Dr. Brian Hayes Hemoglobin (Bld) [Mass/Vol] 13.1 g/dL Normal 12.0-16.0 [facility] Comment on above: Performed By: #### C BC #### [facility] [address] [place] [address] Dr. Brian Hayes IG # 0.02 10e3/ul Normal 0.00-0.03 [facility] Comment on above: Performed By: #### C BC #### [facility] [address] [place] [address] Dr. Brian Hayes IG % 0.3 % Normal 0.0-0.5 [facility] Comment on above: Performed By: #### C BC #### [facility] [address] [place] [address] Dr. Brian Hayes LYMPH # 2.6 103/ul Normal 1.2-3.8 [facility] Comment on above: Performed By: #### C BC #### [facility] [address] [place] [address] Dr. Brian Hayes Lymphocytes/100 WBC (Bld) 36.2 % Normal 20.5-60.0 [facility] Comment on above: Performed By: #### C BC #### [facility] [address] [place] [address] Dr. Brian Hayes MANUAL DIFF REQ NO Normal [facility] Comment on above: Performed By: #### C BC #### [facility] [address] [place] [address] Dr. Brian Hayes MCH (RBC) [Entitic mass] 33.7 pg Normal 26.7-34.0 [facility] Comment on above: Performed By: #### C BC #### [facility] [address] [place] [address] Dr. Brian Hayes MCHC (RBC) [Mass/Vol] 35.3 g/dL Critically high 29.9-35.2 [facility] Comment on above: Performed By: #### C BC #### [facility] [address] [place] [address] Dr. Brian Hayes MCV (RBC) [Entitic vol] 95.4 fL Normal 81.0-99.0 [facility] Comment on above: Performed By: #### C BC #### [facility] [address] [place] [address] Dr. Brian Hayes MONO # 0.4 103/ul Normal 0.3-0.8 [facility] Comment on above: Performed By: #### C BC #### [facility] [address] [place] [address] Dr. Brian Hayes Monocytes/100 WBC (Bld) 6.1 % Normal 1.7-12.0 [facility] Comment on above: Performed By: #### C BC #### [facility] [address] [address] [address] Brian Hayes NEUT # 3.9 103/ul Normal 1.4-6.5 [facility] Comment on above: Performed By: #### C BC #### [facility] [address] [address] [address] Brian Hayes Neutrophils/100 WBC (Bld) 54.1 % Normal 43.0-75.0 [facility] Comment on above: Performed By: #### C BC #### [facility] [address] [address] [address] Brian Hayes Platelet mean volume (Bld) [Entitic vol] 10.9 fL Normal 9.5-13.5 [facility] Comment on above: Performed By: #### C BC #### [facility] [address] [place] [address] Dr. Brian Hayes PLT 228 103/ul Normal 150-450 [facility] Comment on above: Performed By: #### C BC #### [facility] [address] [place] [address] Dr. Brian Hayes RBC 3.89 106/ul Critically low 4.20-5.40 [facility] Comment on above: Performed By: #### C BC #### [facility] [address] [place] [address] Dr. Brian Hayes WBC 7.1 103/ul Normal 4.0-11.0 [facility] Comment on above: Performed By: #### C BC #### [facility] [address] [place] [address] Dr. Brian Hayes PROF CHEM 8 (BAS METB)on Anion gap [Moles/Vol] 12.2 mmol/L Normal [facility] Comment on above: Performed By: #### B MP, TSH #### [facility] [address] [place] [address] Dr. Brian Hayes Calcium [Mass/Vol] 8.6 mg/dL Normal 8.5-10.1 [facility] Comment on above: Performed By: #### B MP, TSH #### [facility] [address] [address] [address] Brian Hayes Chloride [Moles/Vol] 104 mmol/L Normal 98-107 [facility] Comment on above: Performed By: #### B MP, TSH #### [facility] [address] [address] [address] Brian Hayes CO2 [Moles/Vol] 28.7 mmol/L Normal 21.0-32.0 [facility] Comment on above: Performed By: #### B MP, TSH #### [facility] [address] [address] [address] Brian Hayes Creatinine [Mass/Vol] 0.67 mg/dL Normal 0.55-1.02 [facility] Comment on above: Performed By: #### B MP, TSH #### [facility] [address] [address] [address] Brian Hayes EGFR-AF ANGUILLAN >60 Normal >=60 [facility] Comment on above: Performed By: #### B MP, TSH #### [facility] [address] [address] [address] Brian Hayes EGFR-NON AF ANGUILLAN >60 Normal >=60 [facility] Comment on above: Performed By: #### B MP, TSH #### [facility] [address] [address] [address] Brian Hayes Glucose [Mass/Vol] 87 mg/dL Normal 74-106 [facility] Comment on above: Performed By: #### B MP, TSH #### [facility] [address] [address] [address] Brian Hayes Potassium [Moles/Vol] 3.9 mmol/L Normal 3.5-5.1 [facility] Comment on above: Performed By: #### B MP, TSH #### [facility] [address] [address] [address] Brian Hayes Sodium [Moles/Vol] 141 mmol/L Normal 136-145 [facility] Comment on above: Performed By: #### B MP, TSH #### [facility] [address] [place] [address] Dr. Brian Hayes Urea nitrogen [Mass/Vol] 10.0 mg/dL Normal 7.0-18.0 [facility] Comment on above: Performed By: #### B MP, TSH #### [facility] [address] [place] [address] Dr. Brian Hayes Urea nitrogen/Creatinin e [Mass ratio] 14.9 mg/mg Normal [facility] Comment on above: Performed By: #### B MP, TSH #### [facility] [address] [place] [address] Dr. Brian Hayes TSHon 01-14-2022 TSH 2.857 uIU/mL Normal 0.358-3.740 [facility] Comment on above: Performed By: #### B MP, TSH #### [facility] [address] [place] [address] Dr. Brian Hayes CBC AUTO DIFFon 04-23-2021 BASO # 0.0 103/ul Normal 0.0-0.1 [facility] Comment on above: Performed By: #### C BC #### [facility] [address] [place] [address] Dr. Brian Hayes Basophils/100 WBC (Bld) 0.6 % Normal 0.2-2.0 [facility] Comment on above: Performed By: #### C BC #### [facility] [address] [place] [address] Dr. Brian Hayes EO # 0.2 103/ul Normal 0.0-0.7 [facility] Comment on above: Performed By: #### C BC #### [facility] [address] [place] [address] Dr. Brian Hayes Eosinophils/100 WBC (Bld) 4.5 % Normal 0.9-7.0 [facility] Comment on above: Performed By: #### C BC #### [facility] [address] [place] [address] Dr. Brian Hayes Erythrocyte distribution width (RBC) [Ratio] 12.6 % Normal 11.0-15.0 [facility] Comment on above: Performed By: #### C BC #### [facility] [address] [place] [address] Dr. Brian Hayes Hematocrit (Bld) [Volume fraction] 38.7 % Normal 36.0-48.0 [facility] Comment on above: Performed By: #### C BC #### [facility] [address] [place] [address] Dr. Brian Hayes Hemoglobin (Bld) [Mass/Vol] 13.4 g/dL Normal 12.0-16.0 [facility] Comment on above: Performed By: #### C BC #### [facility] [address] [place] [address] Dr. Brian Hayes IG # 0.01 10e3/ul Normal 0.00-0.03 [facility] Comment on above: Performed By: #### C BC #### [facility] [address] [place] [address] Dr. Brian Hayes IG % 0.2 % Normal 0.0-0.5 [facility] Comment on above: Performed By: #### C BC #### [facility] [address] [place] [address] Dr. Brian Hayes LYMPH # 1.6 103/ul Normal 1.2-3.8 [facility] Comment on above: Performed By: #### C BC #### [facility] [address] [place] [address] Dr. Brian Hayes Lymphocytes/100 WBC (Bld) 34.4 % Normal 20.5-60.0 [facility] Comment on above: Performed By: #### C BC #### [facility] [address] [place] [address] Dr. Brian Hayes MANUAL DIFF REQ NO Normal [facility] Comment on above: Performed By: #### C BC #### [facility] [address] [place] [address] Dr. Brian Hayes MCH (RBC) [Entitic mass] 34.0 pg Normal 26.7-34.0 [facility] Comment on above: Performed By: #### C BC #### [facility] [address] [address] [address] Brian Hayes MCHC (RBC) [Mass/Vol] 34.6 g/dL Normal 29.9-35.2 [facility] Comment on above: Performed By: #### C BC #### [facility] [address] [address] [address] Brian Hayes MCV (RBC) [Entitic vol] 98.2 fL Normal 81.0-99.0 [facility] Comment on above: Performed By: #### C BC #### [facility] [address] [place] [address] Dr. Brian Hayes MONO # 0.4 103/ul Normal 0.3-0.8 [facility] Comment on above: Performed By: #### C BC #### [facility] [address] [place] [address] Dr. Brian Hayes Monocytes/100 WBC (Bld) 7.9 % Normal 1.7-12.0 [facility] Comment on above: Performed By: #### C BC #### [facility] [address] [place] [address] Dr. Brian Hayes NEUT # 2.5 103/ul Normal 1.4-6.5 [facility] Comment on above: Performed By: #### C BC #### [facility] [address] [place] [address] Dr. Brian Hayes Neutrophils/100 WBC (Bld) 52.4 % Normal 43.0-75.0 [facility] Comment on above: Performed By: #### C BC #### [facility] [address] [place] [address] Dr. Brian Hayes Platelet mean volume (Bld) [Entitic vol] 10.8 fL Normal 9.5-13.5 [facility] Comment on above: Performed By: #### C BC #### [facility] [address] [place] [address] Dr. Brian Hayes PLT 215 103/ul Normal 150-450 [facility] Comment on above: Performed By: #### C BC #### [facility] [address] [place], [place] [address] Dr. Brian Hayes RBC 3.94 106/ul Critically low 4.20-5.40 [facility] Comment on above: Performed By: #### C BC #### [facility] [id number] Brian Hayes WBC 4.7 103/ul Normal 4.0-11.0 [facility] Comment on above: Performed By: #### C BC #### [facility] [address] [address] [address] Brian Hayes PREG QUANT HCGon 04-23-2021 HCG QUANT <1 Normal [facility] Comment on above: Performed By: #### P REGQNT #### [facility] [address] [address] [address] Brian Hayes HCG RANGE SEE BELOW Normal [facility] Comment on above: Result Comment: 5-50 0-1 WEEK 40-300 1-2 WEEKS 100-1,000 2-3 WEEKS 500-6,000 3-4 WEEKS 5,000-200,000 1-2 MONTHS 10,000-100,000 2-3 MONTHS 3,000-50,000 2ND TRIMESTER 1,000-50,000 3RD TRIMESTER Performed By: #### P REGQNT #### [facility] [address] [place] [address] Dr. Brian Hayes MM diagnostic mammo BI w/CAD on 08-02-2019 MM diagnostic mammo BI w/CAD [place] [address] Mammography Report Signed Patient: Marisela Overton MR#: [id number] : 1980 Acct:[id number] Age/Sex: 38 / F ADM Date: 08/02/19 Loc: [place] Room: [facility] Attending Dr: Heladio Alves MD Ordering Provider: [...] Félix Montano M.D.08/02/2019 8:20 AM Dictation Location: [facility] Transcribed By: MITCHEL 08/02/19819 Dictated By: Félix Montano II, MD 08/02/19812 Signed By: 08/02/19819 [facility] Vital Signs Date Time Vital Sign Value Performing Clinician Facility 02-18-2022 10:30-0500 Body height 170.18 cm Marcella Foley Other [facility] Other 02-18-2022 10:30-0500 Body mass index (BMI) [Ratio] 36.96 kg/m2 Marcella Foley Other [facility] Other 02-18-2022 10:30-0500 Body weight 107.05 kg Marcella Foley Other [facility] Other 02-18-2022 10:30-0500 Diastolic blood pressure 78 mm[Hg] Marcella Ana Other [facility] Other 02-18-2022 10:30-0500 Systolic blood pressure 124 mm[Hg] Marcella Foley Other [facility] Other Encounters Encounter Date Encounter Type Care Provider Facility Start: 06-29-2023 End: 06-29-2023 ambulatory ANDREA PRADO Not Available Start: 03-03-2023 End: 03-03-2023 Emergency department patient visit MARCELLA Seo ANA [facility] Start: 03-01-2023 End: 03-01-2023 ambulatory Marcella Ana Other [facility] Other Start: 03-01-2023 Telephone encounter Marcella Ana [facility] Start: 10-04-2022 End: 10-04-2022 ambulatory Marcella Ana Other [facility] Other Start: 10-04-2022 Telephone encounter Marcella Ana [facility] Start: 08-22-2022 End: 08-22-2022 ambulatory Marcella Ana Other [facility] Other Start: 08-22-2022 Telephone encounter Marcella Ana [facility] Start: 07-13-2022 End: 07-13-2022 ambulatory Marcella Ana Other [facility] Other Start: 07-13-2022 Telephone encounter Marcella Ana [facility] Start: 04-14-2022 (Televisit) Televisit Marcella Foley F [facility] Start: 04-14-2022 End: 04-14-2022 ambulatory Marcella Ana Other [facility] Other Start: 02-24-2022 End: 02-24-2022 ambulatory Marcella Foley Other [facility] Other Start: 02-24-2022 Telephone encounter Marcella Foley [facility] Start: 02-18-2022 End: 02-18-2022 ambulatory Marcella Foley Other [facility] Other Start: 02-18-2022 Office outpatient vi sit 10 minutes Marcella Foley [facility] Start: 01-14-2022 End: 01-15-[address] MARCELLA FOLEY Facility:[facility] Start: 06-07-2021 Adult health examination Erica Foley Other [facility] Other Start: 06-07-2021 Gynecological examin ation normal Marcella Foley Other [facility] Other Start: 06-07-2021 Pre-procedure evalua tion check Marcella Foley Other [facility] Other Start: 04-23-2021 End: 04-23-[address] COLIN STOLL Facility:[facility] Start: 04-20-[address] COLIN STOLL Facility :[facility] Start: 04-13-2021 Encounter for other preprocedural examination DR COLIN STOLL [facility] Start: 04-09-2021 End: 04-10-[address] COLIN STOLL Facility:[facility] Start: 04-09-2021 End: 04-10-2021 Encounter for other preprocedural examination DR COLIN STOLL Facility:[facility] Procedures Date Procedure Procedure Detail Performing Clinician End: 07-04-2018 screening Marcella Foley Other End: 09-26-2018 Depression screening Marcella Foley Other End: 09-26-2018 Diabetes mellitus screening Marcella Foley Other Insertion of intraut erine contraceptive device Marcella Foley Other visit Marcella Foley Other End: 11-06-2018 Routine care Marcella Foley Other Viral screening Marcella Foley Other Immunizations Immunization Date Immunization Notes Care Provider Fa cility 11-28-2019 diphtheria, tetanus toxoids and acellular pertussis vaccine, unspecified formulation Marcella Ana Other [facility] Other 11-28-2019 influenza virus vaccine, split virus (incl. purified surface antigen) Marcella Ana Other [facility] Other Payers Date Payer Category Payer Unknown [id number] 1980 Unknown [id number] 1980 Unknown [id number] 2.16.84 [id number] 1982 Unknown [id number] 2.16.84 [id number] 1982 Unknown [id number] 2.16.84 [id number] 1982 Unknown [id number] 2.16.8 [id number] 1982 Unknown [id number] 2.16.84 [id number] 1959 Unknown [id number] 1959 Unknown [id number] 1959 Unknown [id number] Social History Date Type Detail Facility Unknown if ever smoked [facility] Other Sex Assigned At Sex Assigned At Bir th [facility] Other Evaluation note 04-14-2022 Note Date & [...] verbalized understanding and agreement with treatment plan. [facility] Other Evaluation note 02-18-2022 Note Date & Type Note Facility 02-18-2022 Evaluation note Encounter Date Diagnosis Assessment Notes Feb, BMI 36.0-36. 9,adult (ICD-10 - Z68.36) Denies adverse side effects. Signed [employer]ipe[employer] rules. Continue month #2 of treatment. Is becoming more mindful of stress eating. Reviewed PDMP report. obese [facility] Other Clinical Note 04-23-2021 Note Date & Type Note Facility 04-23-2021 Note [facility] [place], [place] NAME: MARISELA OVERTON DATE OF : MEDICAL REC#: [id number] POURING CRANE OPERATOR: [id number] [facility], TRANSADMIT DATE: 04/23/2021 07:23:00 BANDAGE WRAPPING MACHINE OPERATOR DATE: 04/25/2021 01:00 DICTATING PHYSICIAN: COLIN STOLL DICTATION DATE: 04/23/2021 11:00 OPERATIVE NOTE PROCEDURE: Laparoscopic bilateral salpingectomy, removal of IUD, as well as attempted Ike ablation with hysteroscopy; unable to perform due to uterine cavity. PREOPERATIVE DIAGNOSIS: Menorrhagia, desire permanent sterilization, desires removal of IUD. POSTOPERATIVE DIAGNOSIS: Menorrhagia, desire permanent sterilization, desires removal of IUD. ANESTHESIA: General. SURGEON: Colin Stoll D.O. RETAIL ATTENDANT: STEVE Baca. URINE OUTPUT: Yellow and clear. [...] x2. Electronically Authenticated and Edited by: Colin Stoll DO on 05/03/2021 10:13 PM EDT IFC Signed and Approved by: DR COLIN STOLL . 05/03/2021 22:13:00 [facility] Evaluation note Note Date & Type Note Facility Evaluation note No Information [facility] Other History general Narrative - Reported Note Date & Type Note Facility History general Narrative - Reported Type Medical History breast cancer 2014 Medical History History of breast cancer Surgical History C section Surgical History breast cancer [facility] [employer] Other Summary Purpose Family History No Family History Records FoundNo Family History Records FoundNo Family History Records FoundNo Family History Records Found Advance Directives No Advanced Directives Records FoundNo Advanced Directives Records FoundNo Advanced Directives Records FoundNo Advanced Directives Records Found Additional Source Comments INFORMATION SOURCE (unrecogn ized section and content) DATE CREATED AUTHOR 08/28/[address] [facility] DATE CREATED AUTHOR AUTHOR'S ORGANIZ ATION 02/18/2022 [facility] DATE CREATED AUTHOR AUTHOR'S ORGANIZ ATION 03/05/2023 [facility] DATE CREATED AUTHOR AUTHOR'S ORGANIZ ATION 07/01/2023 [facility] EPIC REASON FOR VISIT (unrecogniz [...] BE BASED ON THE PRIMARY CLINICAL RECORDS. [email or web address] provides no warranty or guarantee of the accuracy or completeness of information in this document.
--- NOTE | 2024-01-10 07:59 | US_ITS ---
Patient Name: KIA REMY MR#: [id number] : 1980 Exam Date: 01/10/2024 Ordering Doctor: SRUTHI Jacques . RADIOLOGY REPORT PROCEDURE: MM TOMOSYNTHESIS DIAGNOSTIC LT, 01/10/2024, 08:03 US BREAST LT LIMITED, 01/10/2024, 08:36 COMPARISON: MM TOMOSYNTHESIS DIAGNOSTIC BI, 07/14/2023. INDICATIONS: Left Breast Lump Calculator Name NCI Breast Cancer Risk Assessment Tool 5 Year Breast Cancer Risk n/a% Lifetime Breast Cancer Risk n/a% Personal Breast Cancer Yes, Left Breast Age 32 Personal Ovarian Cancer No Treatments Lumpectomy, Chemo, Radiation Family Cancers Father with colon cancer at age 67. LOCATION: [facility] BREAST COMPOSITION: The breasts are heterogeneously dense,which may obscure small masses. FINDINGS: DIAGNOSTIC CATEGORY 2--BENIGN FINDING. NO CHANGE FROM COMPARISON. The left breast is stable in size and overall fibroglandular configuration. Area of architectural distortion with micro clip markers and heterotopic calcification upper-outer quadrant deep to the triangle palpable marker. Ultrasound demonstrates 2 focal areas of hyper echogenicity measuring 6 and 3.2 mm in size, lipoma is are suspected. Given the stability over time. I favor a benign process. The patient was asked to return to screening mammography with repeat bilateral screen July of 2024 RECOMMENDATIONS: ROUTINE MAMMOGRAM AND CLINICAL EVALUATION IN 12 MONTHS. PLEASE NOTE: A NORMAL MAMMOGRAM DOES NOT EXCLUDE THE POSSIBILITY OF BREAST CANCER. A CLINICALLY SUSPICIOUS PALPABLE LUMP SHOULD BE BIOPSIED. Dictated by: Lamont Hoskins MD on 01/10/2024 at 08:56 Approved by: Lamont Hoskins MD on 01/10/2024 at 08:59
== END 2024-01-10 07:54 | disposition home or self-care (01) ==
LOC: MAMMO 07:53
PROVIDERS: Visit Provider Physician Assistant
DX: N63.25 Unspecified lump in the left breast, overlapping quadrants (principal); Z85.3 Personal history of malignant neoplasm of breast; Z80.0 Family history of malignant neoplasm of digestive organs
CPT/HCPCS: 76642; 77065; G0279

== ENCOUNTER 2024-08-01 18:00 | Outpatient (REF) | payer BC, SELFPAY ==
[2024-08-07 14:08] LABS: Age Gdln ACOG Testing Note (.); HPV Aptima Negative (Negative); IGP, Aptima HPV, rfx 16/18,45 Note (.)
== END 2024-08-01 18:01 | disposition home or self-care (01) ==
LOC: LAB 18:00
PROVIDERS: Visit Provider Physician Assistant
DX: Z01.419 Encounter for gynecological examination (general) (routine) without abnormal findings (principal)
CPT/HCPCS: 87624; 88175